=== PATIENT | male | born 1970 | race Caucasian/White ===

== ENCOUNTER 2017-12-17 02:35 | Inpatient (IN) | payer MEDICARE, OTHER ==
[~2017-12-17] VITALS: Ht 175.3 cm; Wt 112.0 kg
[2017-12-17] MEDS ORDERED: PROPOFOL 1000 MG/ISO-OSM 100 ML IV PRN (02:45)
[2017-12-17] MEDS ORDERED: ETOMIDATE 2 MG/ML 10 ML VIAL IVP ONE (02:45)
[2017-12-17 02:48] LABS: GLUCOSE,POINT OF CARE 168 MG/DL (70-110)
[2017-12-17] MEDS ORDERED: IPRATROPIUM BROMIDE 0.5 MG/2.5 ML NEB SOLUTION NEB ONE ×2 (03:00→04:45)
[2017-12-17] MEDS ORDERED: CefTRIAXone SODIUM 1 GM in DEXTROSE 5%-WATER 10 ML IV ONE (03:00)
[2017-12-17] MEDS ORDERED: MethylPREDNISolone SOD SUCC 125 MG/2 ML VIAL IVP ONE (03:00)
[2017-12-17] MEDS ORDERED: ALBUTEROL SULFATE 5 MG/ML 20 ML NEB SOLN [BULK] NEB ONE ×2 (03:00→04:45)
[2017-12-17 03:05] LABS: BASOPHILS % (AUTO) 0.9 % (0.0-2.0); EOSINOPHILS % (AUTO) 3.5 % (1.0-6.0); HEMATOCRIT 41.1 % (41-53); HEMOGLOBIN 13.6 g/dL (13.5-17.5); LYMPHOCYTES # (AUTO) 5.3 K/uL (1.0-4.8); LYMPHOCYTES % (AUTO) 47.4 % (22.0-44.0); MEAN CORPUSCULAR HEMOGLOBIN 29.1 pg (26.0-34.0); MEAN CORPUSCULAR HGB CONC 33.2 G/dL (31.0-37.0); MEAN CORPUSCULAR VOLUME 88 fL (80-100); MONOCYTES # (AUTO) 0.7 K/uL (0.1-1.0); MONOCYTES % (AUTO) 6.6 % (2.0-9.0); NEUTROPHILS # (AUTO) 4.7 K/uL (1.8-7.7); NEUTROPHILS % (AUTO) 41.6 % (40.0-70.0); PLATELET COUNT (AUTO) 215 K/uL (150-450); RED BLOOD CELL COUNT(AUTO) 4.69 MIL/uL (4.50-5.90); RED CELL DISTRIBUTION WIDTH 13.6 % (11.5-14.5)
[2017-12-17 03:08] LABS: ANION GAP 8 mmol/L (8-16); CALCIUM, TOTAL 7.7 mg/dL (8.8-10.5); CARBON DIOXIDE 27 mmol/L (22-29); CHLORIDE 105 mmol/L (98-107); CREATININE 1.25 mg/dL (0.60-1.30); GLOMERULAR FILTR. RATE CALC > 60 mL/min (>60); GLUCOSE,RANDOM 184 mg/dL (70-110); POTASSIUM 3.5 mmol/L (3.5-5.1); SODIUM SERUM 140 mmol/L (136-145); UREA NITROGEN, BLOOD 16 mg/dL (7-18)
[2017-12-17] MEDS ORDERED: ZOLP5 PO (03:08)
[2017-12-17] MEDS ORDERED: ESCI20TA36 PO (03:08)
[2017-12-17] MEDS ORDERED: OLAN15TA18 PO (03:08)
[2017-12-17] MEDS ORDERED: GABA-531 PO (03:08)
[2017-12-17] MEDS ORDERED: OMEP20CA10 PO (03:08)
[2017-12-17] MEDS ORDERED: PALI156D IM (03:08)
[2017-12-17] MEDS ORDERED: DOCU-275 PO (03:08)
[2017-12-17] MEDS ORDERED: IBUP-2076 PO (03:08)
[2017-12-17 03:09] LABS: ABG BASE EXCESS -0.4 mmol/L (-2.0-3.0); SOURCE, BLOOD GAS ARTERIAL; TEMPERATURE, FAHRENHEIT, BG 98.6 FAHREN (96.0-98.6)
[2017-12-17 03:17] LABS: ABG A-A DIFF O2 583.8 mmHg (10-20.0); ABG CARBOXYHEMOGLOBIN 1.8 % (0.0-1.5); ABG HCO3 23.2 mmol/L (22.0-26.0); ABG METHEMOGLOBIN 0.4 % (0.0-1.5); ABG OXYGEN CONTENT 17.9 mL/dL (15.0-23.0); ABG OXYGEN SATURATION 92.8 % (95.0-98.0); ABG OXYHEMOGLOBIN 90.8 % (94.0-100.0); ABG PCO2 58 mmHg (35-45); ABG PH 7.279 (7.35-7.450); PO2, ARTERIAL BG 71.6 mmHg (88.0-96.0); SITE, BLOOD GAS RT RADIAL
[2017-12-17 03:18] LABS: O2 DEVICE,BLOOD GAS AEROSOL MASK (ROOM AIR)
[2017-12-17 03:24] LABS: B-TYPE NATRIURETIC PEPTIDE 6 pg/mL (0-100)
[2017-12-17 03:30] LABS: AMMONIA 71 umol/L (11-32); TROPONIN I < 0.02 ng/mL (0.00-0.05)
[2017-12-17 03:34] LABS: ASPARTATE AMINOTRANSFERASE 20 U/L (15-37); BILIRUBIN,TOTAL 0.2 mg/dL (0.1-1.0); CREATINE KINASE, TOTAL 84 U/L (39-308); THYROID STIMULATING HORMONE 4.14 uIU/mL (0.36-3.74); TOTAL PROTEIN, SERUM 6.9 g/dL (6.4-8.2)
[2017-12-17 03:58] LABS: ALANINE AMINOTRANSFERASE 33 U/L (12-78); ALBUMIN 3.1 g/dL (3.4-5.0); ALKALINE PHOSPHATASE 93 U/L (46-116); CREATINE KINASE MB 0.5 ng/mL (0-5); FREE T4 (FREE THYROXINE) 0.73 ng/dL (0.76-1.46); LIPASE 76 U/L (73-393)
[2017-12-17 05:21] LABS: LACTIC ACID 2.4 mmol/L (0.4-2.0)
[2017-12-17 05:28] LABS: ABG A-A DIFF O2 41.8 mmHg (10-20.0); ABG BASE EXCESS -0.2 mmol/L (-2.0-3.0); ABG CARBOXYHEMOGLOBIN 0.9 % (0.0-1.5); ABG HCO3 23.1 mmol/L (22.0-26.0); ABG METHEMOGLOBIN 0.2 % (0.0-1.5); ABG OXYHEMOGLOBIN 75.8 % (94.0-100.0); ABG PCO2 54 mmHg (35-45); ABG PH 7.304 (7.35-7.450); ABG TOTAL HEMOGLOBIN 14.1 G/dL (12.0-18.0); PO2, ARTERIAL BG 43.4 mmHg (88.0-96.0); SOURCE, BLOOD GAS ARTERIAL; TEMPERATURE, FAHRENHEIT, BG 98.6 FAHREN (96.0-98.6)
[2017-12-17 05:30] LABS: ABG OXYGEN SATURATION 76.6 % (95.0-98.0); SITE, BLOOD GAS RT RADIAL
[2017-12-17 05:36] LABS: CREATINE KINASE MB 0.7 ng/mL (0-5); CREATINE KINASE, TOTAL 89 U/L (39-308)
[2017-12-17] MEDS ORDERED: ONDANSETRON HCL 4 MG/2 ML VIAL IVP PRN (08:00)
[2017-12-17 08:06] LABS: APPEARANCE,URINE CLEAR (CLEAR); BILIRUBIN,URINE NEGATIVE (NEGATIVE); GLUCOSE, URINE (UA) NEGATIVE (NEGATIVE); KETONES,URINE NEGATIVE (NEGATIVE); LEUKOCYTE ESTERASE ,URINE NEGATIVE (NEGATIVE); NITRATE,URINE NEGATIVE (NEGATIVE); OCCULT BLOOD,URINE NEGATIVE (NEGATIVE); PH,URINE 5.5 (5.0-8.0); PROTEIN,URINE NEGATIVE (NEGATIVE); UROBILINOGEN,URINE 0.2 mg/dL (<=1.0)
[2017-12-17 08:09] LABS: AMPHET/METH SCREEN,URINE NEGATIVE (NEGATIVE); BARBITURATE SCREEN, URINE NEGATIVE (NEGATIVE); BENZODIAZEPINES SCREEN,URINE NEGATIVE (NEGATIVE); CANNABINOID SCREEN,URINE POSITIVE (NEGATIVE); COCAINE SCREEN,URINE NEGATIVE (NEGATIVE); METHADONE SCREEN, URINE NEGATIVE (NEGATIVE); OPIATE SCREEN,URINE POSITIVE (NEGATIVE)
[2017-12-17 08:10] LABS: PHENCYCLIDINE SCREEN,URINE NEGATIVE (NEGATIVE)
[2017-12-17] MEDS ORDERED: DEXTROSE 50%-WATER 25 GM/50 ML SYRINGE IVP PRN (08:15)
[2017-12-17] MEDS ORDERED: INSULIN LISPRO 100 UNITS/ML SQ PRN (08:15)
[2017-12-17] MEDS ORDERED: SODIUM CHLORIDE 0.9% 1,000 ML IV ONE (08:30)
[2017-12-17] MEDS ORDERED: RINGERS SOLUTION,LACTATED 1,000 ML IV ONE (08:30)
[2017-12-17] MEDS: ALBUTEROL SULFATE 2.5 MG/0.5 ML NEB SOLUTION NEB SCH ×3 (08:35→19:49)
[2017-12-17] MEDS: IPRATROPIUM BROMIDE 0.5 MG/2.5 ML NEB SOLUTION NEB SCH ×3 (08:35→19:49)
[2017-12-17] MEDS: DOCUSATE SODIUM 100 MG CAPSULE PO SCH ×2 (08:37→21:00)
[2017-12-17] MEDS: LEVOTHYROXINE SODIUM 25 MCG TABLET PO SCH (08:37)
[2017-12-17] MEDS: ENOXAPARIN SODIUM 40 MG/0.4 ML PF SYRINGE SQ SCH (08:38)
[2017-12-17 08:46] LABS: EOSINOPHILS % (AUTO) 0 % (1.0-6.0); LYMPHOCYTES # (AUTO) 0.7 K/uL (1.0-4.8); MEAN CORPUSCULAR HGB CONC 33.4 G/dL (31.0-37.0); MEAN CORPUSCULAR VOLUME 87 fL (80-100); MONOCYTES # (AUTO) 0.1 K/uL (0.1-1.0); MONOCYTES % (AUTO) 1.1 % (2.0-9.0); NEUTROPHILS # (AUTO) 10.4 K/uL (1.8-7.7); PLATELET COUNT (AUTO) 184 K/uL (150-450); RED BLOOD CELL COUNT(AUTO) 4.49 MIL/uL (4.50-5.90); RED CELL DISTRIBUTION WIDTH 13.5 % (11.5-14.5)
[2017-12-17 08:47] LABS: NEUTROPHILS % (AUTO) 92.9 % (40.0-70.0)
[2017-12-17 08:55] LABS: INR 0.9 (0.9-1.1); PROTHROMBIN TIME 9.8 SEC (9.4-11.6)
[2017-12-17 09:01] LABS: ALBUMIN 3.3 g/dL (3.4-5.0); BILIRUBIN,TOTAL 0.2 mg/dL (0.1-1.0); CALCIUM, TOTAL 7.9 mg/dL (8.8-10.5); CREATININE 1.64 mg/dL (0.60-1.30); TOTAL PROTEIN, SERUM 7.2 g/dL (6.4-8.2)
[2017-12-17 09:06] LABS: POTASSIUM 2.9 mmol/L (3.5-5.1)
[2017-12-17] MEDS ORDERED: POTASSIUM CHLORIDE 20 MEQ ER TABLET PO PRN (09:15)
[2017-12-17] MEDS: POTASSIUM CHL 10 MEQ/WATER 50 ML IV PRN ×3 (09:28→11:31)
[2017-12-17 13:08] LABS: GLUCOSE,POINT OF CARE 192 MG/DL (70-110)
[2017-12-17 13:36] VITALS: BP 101/51
[2017-12-17 19:55] VITALS: BP 117/63
[2017-12-17 23:33] VITALS: BP 115/59
[2017-12-18] MEDS: IPRATROPIUM BROMIDE 0.5 MG/2.5 ML NEB SOLUTION NEB SCH ×3 (02:00→13:44)
[2017-12-18] MEDS: ALBUTEROL SULFATE 2.5 MG/0.5 ML NEB SOLUTION NEB SCH ×3 (02:00→13:44)
[2017-12-18 04:22] VITALS: BP 101/50
[2017-12-18] MEDS: LEVOTHYROXINE SODIUM 25 MCG TABLET PO SCH (05:39)
[2017-12-18] MEDS ORDERED: LANSOPRAZOLE 30 MG CAPSULE PO SCH (06:30)
[2017-12-18 07:57] VITALS: BP 130/63
[2017-12-18] MEDS: DOCUSATE SODIUM 100 MG CAPSULE PO SCH (09:57)
[2017-12-18] MEDS: ENOXAPARIN SODIUM 40 MG/0.4 ML PF SYRINGE SQ SCH (09:57)
[2017-12-18 11:07] VITALS: BP 122/72
[2017-12-18 16:35] VITALS: BP 124/76
[2017-12-18 22:29] LABS: GLUCOMETER DEV NAME(LOC) 5N 2S; GLUCOSE,POINT OF CARE 127 MG/DL (70-110)
[2017-12-19 18:24] LABS: GLUCOMETER DEV NAME(LOC) 5N 1P; GLUCOSE,POINT OF CARE 149 MG/DL (70-110)
== END 2017-12-18 18:55 | disposition home or self-care (01) | DRG 917 ==
LOC: EMS 02:37 → EDBD 02:37 → 5N 12:57
PROVIDERS: ADMIT Internal Medicine; ATTEND Internal Medicine
DX: T40.601A Poisoning by unspecified narcotics, accidental (unintentional), initial encounter (principal); I46.9 Cardiac arrest, cause unspecified; G92 Toxic encephalopathy; J96.00 Acute respiratory failure, unspecified whether with hypoxia or hypercapnia; E87.2 Acidosis; J44.1 Chronic obstructive pulmonary disease with (acute) exacerbation; G31.9 Degenerative disease of nervous system, unspecified; E03.9 Hypothyroidism, unspecified; G89.4 Chronic pain syndrome; J44.9 Chronic obstructive pulmonary disease, unspecified; Y92.89 Other specified places as the place of occurrence of the external cause; E11.9 Type 2 diabetes mellitus without complications; S00.83XA Contusion of other part of head, initial encounter; Y93.89 Activity, other specified; Y99.8 Other external cause status; W19.XXXA Unspecified fall, initial encounter; Z79.899 Other long term (current) drug therapy
CPT/HCPCS: 51702; 70450; 82805; 83605; 84132; 84439; 84443; 87040; 93005; 94640; 94644; 94645; 96374; 96375; 99291; G0480; J0696; J1650; J2930; J3480; J7060; J7120

== ENCOUNTER 2018-11-07 19:08 | Emergency (ER) | payer MEDICARE, OTHER ==
[~2018-11-07] VITALS: Ht 172.7 cm; Wt 118.2 kg
[~2018-11-07 19:08] MED LIST: DOCU-275 PO; ESCI20TA PO; ESCI20TA36 PO; GABA-531 PO; IBUP-2076 PO; OLAN10TA3 PO; OLAN15TA18 PO; OMEP-50 PO; PALI156D IM; ZOLP5 PO
[2018-11-07] MEDS ORDERED: KETOROLAC TROMETHAMINE 30 MG/ML VIAL IM ONE (21:00)
[2018-11-07 21:20] VITALS: BP 130/84
== END 2018-11-07 21:40 | disposition home or self-care (01) ==
LOC: EMS 19:11
DX: M25.561 Pain in right knee (principal); M25.562 Pain in left knee; G89.29 Other chronic pain; Z91.013 Allergy to seafood
CPT/HCPCS: 96372; 99283; J1885

== ENCOUNTER 2019-04-14 19:31 | Inpatient (IN) | payer MEDICARE, MEDICAID ==
[~2019-04-14] VITALS: Ht 172.7 cm; Wt 108.0 kg
[~2019-04-14 19:31] MED LIST changes: -ESCI20TA PO; -OMEP-50 PO; +OMEP20CA12 PO
[2019-04-14] MEDS ORDERED: LORazepam 2 MG TABLET PO PRN (21:30)
[2019-04-14 21:31] LABS: AMPHET/METH SCREEN,URINE NEGATIVE (NEGATIVE); BARBITURATE SCREEN, URINE NEGATIVE (NEGATIVE); BENZODIAZEPINES SCREEN,URINE NEGATIVE (NEGATIVE); CANNABINOID SCREEN,URINE NEGATIVE (NEGATIVE); COCAINE SCREEN,URINE NEGATIVE (NEGATIVE); METHADONE SCREEN, URINE NEGATIVE (NEGATIVE); OPIATE SCREEN,URINE NEGATIVE (NEGATIVE)
[2019-04-14 21:32] LABS: PHENCYCLIDINE SCREEN,URINE NEGATIVE (NEGATIVE)
[2019-04-14 21:39] LABS: BASOPHILS % (AUTO) 0.7 % (0.0-2.0); EOSINOPHILS % (AUTO) 2.5 % (1.0-6.0); HEMATOCRIT 39.9 % (41-53); HEMOGLOBIN 13.6 g/dL (13.5-17.5); LYMPHOCYTES # (AUTO) 1.8 K/uL (1.0-4.8); LYMPHOCYTES % (AUTO) 21.2 % (22.0-44.0); MEAN CORPUSCULAR HEMOGLOBIN 29.3 pg (26.0-34.0); MEAN CORPUSCULAR VOLUME 86 fL (80-100); MONOCYTES # (AUTO) 0.5 K/uL (0.1-1.0); MONOCYTES % (AUTO) 5.5 % (2.0-9.0); NEUTROPHILS # (AUTO) 5.8 K/uL (1.8-7.7); NEUTROPHILS % (AUTO) 70.1 % (40.0-70.0); PLATELET COUNT (AUTO) 235 K/uL (150-450); RED BLOOD CELL COUNT(AUTO) 4.62 MIL/uL (4.50-5.90); RED CELL DISTRIBUTION WIDTH 13.2 % (11.5-14.5)
[2019-04-14 21:43] LABS: APPEARANCE,URINE CLEAR (CLEAR); BILIRUBIN,URINE NEGATIVE (NEGATIVE); GLUCOSE, URINE (UA) NEGATIVE (NEGATIVE); KETONES,URINE NEGATIVE (NEGATIVE); LEUKOCYTE ESTERASE ,URINE NEGATIVE (NEGATIVE); NITRATE,URINE NEGATIVE (NEGATIVE); OCCULT BLOOD,URINE NEGATIVE (NEGATIVE); PROTEIN,URINE NEGATIVE (NEGATIVE); UROBILINOGEN,URINE 0.2 mg/dL (<=1.0)
[2019-04-14 21:52] LABS: ANION GAP 9 mmol/L (8-16); CALCIUM, TOTAL 8.8 mg/dL (8.8-10.5); CARBON DIOXIDE 26 mmol/L (22-29); CHLORIDE 99 mmol/L (98-107); CREATININE 1.17 mg/dL (0.60-1.30); GLOMERULAR FILTR. RATE CALC > 60 mL/min (>60); GLUCOSE,RANDOM 122 mg/dL (70-110); POTASSIUM 3.1 mmol/L (3.5-5.1); SODIUM SERUM 134 mmol/L (136-145); UREA NITROGEN, BLOOD 9 mg/dL (7-18)
[2019-04-14 22:00] LABS: ALANINE AMINOTRANSFERASE 47 U/L (12-78); ALBUMIN 3.8 g/dL (3.4-5.0); ALKALINE PHOSPHATASE 89 U/L (46-116); ASPARTATE AMINOTRANSFERASE 27 U/L (15-37); BILIRUBIN,TOTAL 0.5 mg/dL (0.1-1.0); TOTAL PROTEIN, SERUM 7.5 g/dL (6.4-8.2)
[2019-04-14] MEDS: ZOLPIDEM TARTRATE 10 MG TABLET PO PRN (22:00)
[2019-04-14] MEDS: HALOPERIDOL 5 MG TABLET PO PRN (22:00)
[2019-04-14] MEDS ORDERED: POTASSIUM CHLORIDE 20 MEQ ER TABLET PO ONE (22:30)
[2019-04-15 03:22] LABS: CHOL/HDL RATIO 1.7 (4.2-7.3); CHOLESTEROL 100 mg/dL (131-200); HDL CHOLESTEROL 59 mg/dL (40-60); LDL CHOL (CALC.) 31 mg/dL (0-130); TRIGLYCERIDES 51 mg/dL (15-150)
[2019-04-15] MEDS: HALOPERIDOL 5 MG TABLET PO PRN (05:00)
[2019-04-15 11:30] VITALS: BP 115/61
[2019-04-15] MEDS ORDERED: INFLUENZA VIRUS VACCINE QVS 2019-20 (3YR+)/PF 60 MCG/0.5 ML SYRINGE IM ONE (12:30)
[2019-04-15] MEDS ORDERED: IBUPROFEN 600 MG TABLET PO PRN (13:00)
[2019-04-15] MEDS: GABAPENTIN 300 MG CAPSULE PO SCH ×2 (13:29→16:49)
[2019-04-15] MEDS: ACETAMINOPHEN 325 MG TABLET PO PRN (13:30)
[2019-04-15 13:32] VITALS: BP 130/83
[2019-04-15] MEDS ORDERED: IBUPROFEN 400 MG TABLET PO PRN (15:45)
[2019-04-15 16:11] VITALS: BP 115/83
[2019-04-15] MEDS: OLANZapine 7.5 MG TABLET PO SCH (20:35)
[2019-04-15] MEDS: ZOLPIDEM TARTRATE 10 MG TABLET PO PRN (21:43)
[2019-04-16 00:50] VITALS: BP 113/67
[2019-04-16] MEDS: ALBUTEROL SULFATE HFA 90 MCG/PUFF 8 GM INHALER IH PRN (01:09)
[2019-04-16] MEDS: GABAPENTIN 300 MG CAPSULE PO SCH ×3 (08:15→16:31)
[2019-04-16] MEDS: ESCITALOPRAM OXALATE 20 MG TABLET PO SCH (08:15)
[2019-04-16] MEDS: DOCUSATE SODIUM 100 MG CAPSULE PO SCH (08:15)
[2019-04-16] MEDS: OMEPRAZOLE 20 MG CAPSULE PO SCH (08:15)
[2019-04-16 08:35] VITALS: BP 111/84
[2019-04-16 16:53] VITALS: BP 122/80
[2019-04-16] MEDS: OLANZapine 7.5 MG TABLET PO SCH (20:48)
[2019-04-17 05:40] VITALS: BP 129/93
[2019-04-17] MEDS: ESCITALOPRAM OXALATE 20 MG TABLET PO SCH (08:30)
[2019-04-17] MEDS: GABAPENTIN 300 MG CAPSULE PO SCH ×3 (08:30→17:12)
[2019-04-17] MEDS: OMEPRAZOLE 20 MG CAPSULE PO SCH (08:30)
[2019-04-17] MEDS: DOCUSATE SODIUM 100 MG CAPSULE PO SCH (08:30)
[2019-04-17 13:07] VITALS: BP 118/88
[2019-04-17] MEDS: ACETAMINOPHEN 325 MG TABLET PO PRN (13:07)
[2019-04-17 16:27] VITALS: BP 114/74
[2019-04-17] MEDS: OLANZapine 7.5 MG TABLET PO SCH (20:02)
[2019-04-17] MEDS: ZOLPIDEM TARTRATE 10 MG TABLET PO PRN (21:28)
[2019-04-18 00:13] VITALS: BP 127/78
[2019-04-18] MEDS: DOCUSATE SODIUM 100 MG CAPSULE PO SCH (08:17)
[2019-04-18] MEDS: GABAPENTIN 300 MG CAPSULE PO SCH ×3 (08:17→16:36)
[2019-04-18] MEDS: OMEPRAZOLE 20 MG CAPSULE PO SCH (08:17)
[2019-04-18] MEDS: ESCITALOPRAM OXALATE 20 MG TABLET PO SCH (08:17)
[2019-04-18 08:19] VITALS: BP 120/80
[2019-04-18] MEDS: ACETAMINOPHEN 325 MG TABLET PO PRN ×2 (09:54→16:36)
[2019-04-18 09:55] VITALS: BP 122/82
[2019-04-18 16:32] VITALS: BP 121/76
[2019-04-18 19:13] VITALS: BP 128/82
[2019-04-18] MEDS: OLANZapine 7.5 MG TABLET PO SCH (20:41)
[2019-04-18] MEDS: ZOLPIDEM TARTRATE 10 MG TABLET PO PRN (21:34)
[2019-04-18] MEDS: ALBUTEROL SULFATE HFA 90 MCG/PUFF 8 GM INHALER IH PRN (21:43)
[2019-04-19 06:15] VITALS: BP 113/82
[2019-04-19] MEDS: GABAPENTIN 300 MG CAPSULE PO SCH ×2 (08:27→12:02)
[2019-04-19] MEDS: DOCUSATE SODIUM 100 MG CAPSULE PO SCH (08:27)
[2019-04-19] MEDS: OMEPRAZOLE 20 MG CAPSULE PO SCH (08:28)
[2019-04-19] MEDS: ACETAMINOPHEN 325 MG TABLET PO PRN (08:29)
[2019-04-19 08:40] VITALS: BP 130/89
[2019-04-19] MEDS: ESCITALOPRAM OXALATE 20 MG TABLET PO SCH (09:01)
== END 2019-04-19 13:25 | disposition home or self-care (01) | DRG 885 ==
LOC: EMS 19:33 → B2X 04-15 09:04
PROVIDERS: ADMIT Psychiatry & Neurology Psychiatry; ATTEND Psychiatry & Neurology Psychiatry
DX: F25.0 Schizoaffective disorder, bipolar type (principal); E87.1 Hypo-osmolality and hyponatremia; R45.851 Suicidal ideations; D64.9 Anemia, unspecified; E87.6 Hypokalemia; F12.90 Cannabis use, unspecified, uncomplicated; G62.9 Polyneuropathy, unspecified; F60.3 Borderline personality disorder; G89.29 Other chronic pain; J43.9 Emphysema, unspecified; J45.909 Unspecified asthma, uncomplicated; K21.9 Gastro-esophageal reflux disease without esophagitis; K59.00 Constipation, unspecified; M17.10 Unilateral primary osteoarthritis, unspecified knee; Z91.19 Patient's noncompliance with other medical treatment and regimen; Z91.5 Personal history of self-harm; Z23 Encounter for immunization; Z79.899 Other long term (current) drug therapy
CPT/HCPCS: 90686; G0480; J3535

== ENCOUNTER 2020-09-23 22:52 | Emergency (ER) | payer MEDICARE, OTHER ==
[~2020-09-23] VITALS: Ht 172.7 cm; Wt 113.6 kg
[~2020-09-23 22:52] MED LIST changes: -DOCU-275 PO; -ESCI20TA36 PO; +ESCI20TA37 PO; +GABA-1181 PO; -GABA-531 PO; -IBUP-2076 PO; -OLAN10TA3 PO; +OLAN10TA74 PO; -OLAN15TA18 PO; -OMEP20CA12 PO; -PALI156D IM; -ZOLP5 PO
[2020-09-23 23:51] LABS: APPEARANCE,URINE CLEAR (CLEAR); BILIRUBIN,URINE NEGATIVE (NEGATIVE); GLUCOSE, URINE (UA) NEGATIVE (NEGATIVE); KETONES,URINE NEGATIVE (NEGATIVE); LEUKOCYTE ESTERASE ,URINE NEGATIVE (NEGATIVE); NITRATE,URINE NEGATIVE (NEGATIVE); OCCULT BLOOD,URINE NEGATIVE (NEGATIVE); PH,URINE 6.5 (5.0-8.0); PROTEIN,URINE NEGATIVE (NEGATIVE); UROBILINOGEN,URINE 0.2 mg/dL (<=1.0)
[2020-09-24 00:07] LABS: AMPHET/METH SCREEN,URINE NEGATIVE (NEGATIVE); BARBITURATE SCREEN, URINE NEGATIVE (NEGATIVE); BENZODIAZEPINES SCREEN,URINE NEGATIVE (NEGATIVE); CANNABINOID SCREEN,URINE NEGATIVE (NEGATIVE); COCAINE SCREEN,URINE NEGATIVE (NEGATIVE); METHADONE SCREEN, URINE NEGATIVE (NEGATIVE); OPIATE SCREEN,URINE NEGATIVE (NEGATIVE)
[2020-09-24 00:23] LABS: PHENCYCLIDINE SCREEN,URINE NEGATIVE (NEGATIVE)
[2020-09-24 00:32] LABS: BASOPHILS % (AUTO) 0.5 % (0.0-2.0); HEMATOCRIT 36.7 % (41-53); HEMOGLOBIN 12.3 g/dL (13.5-17.5); LYMPHOCYTES # (AUTO) 2.4 K/uL (1.0-4.8); LYMPHOCYTES % (AUTO) 20.6 % (22.0-44.0); MEAN CORPUSCULAR HEMOGLOBIN 28.3 pg (26.0-34.0); MEAN CORPUSCULAR HGB CONC 33.4 G/dL (31.0-37.0); MEAN CORPUSCULAR VOLUME 85 fL (80-100); MONOCYTES # (AUTO) 0.6 K/uL (0.1-1.0); MONOCYTES % (AUTO) 5.6 % (2.0-9.0); NEUTROPHILS # (AUTO) 8.3 K/uL (1.8-7.7); NEUTROPHILS % (AUTO) 72.3 % (40.0-70.0); PLATELET COUNT (AUTO) 209 K/uL (150-450); RED BLOOD CELL COUNT(AUTO) 4.34 MIL/uL (4.50-5.90)
[2020-09-24 00:55] LABS: ALANINE AMINOTRANSFERASE 35 U/L (12-78); ALBUMIN 3.7 g/dL (3.4-5.0); ALKALINE PHOSPHATASE 69 U/L (46-116); ANION GAP 10 mmol/L (8-16); ASPARTATE AMINOTRANSFERASE 28 U/L (15-37); BILIRUBIN,TOTAL 0.4 mg/dL (0.1-1.0); CARBON DIOXIDE 26 mmol/L (22-29); CHLORIDE 92 mmol/L (98-107); CREATININE 1.26 mg/dL (0.60-1.30); GLOMERULAR FILTR. RATE CALC > 60 mL/min (>60); GLUCOSE,RANDOM 94 mg/dL (70-110); SODIUM SERUM 128 mmol/L (136-145); TOTAL PROTEIN, SERUM 6.7 g/dL (6.4-8.2); UREA NITROGEN, BLOOD 6 mg/dL (7-18)
[2020-09-24 01:01] LABS: ACETAMINOPHEN < 2 mcg/mL (10-30); SALICYLATE 1.6 mg/dL (2.8-20.0)
[2020-09-24] MEDS ORDERED: POTASSIUM CHLORIDE 20 MEQ ER TABLET PO ONE ×2 (01:45→05:00)
[2020-09-24] MEDS ORDERED: SODIUM CHLORIDE 0.9% 1,000 ML IV ONE (01:45)
[2020-09-24 04:41] LABS: ANION GAP 9 mmol/L (8-16); CALCIUM, TOTAL 8.1 mg/dL (8.8-10.5); CARBON DIOXIDE 27 mmol/L (22-29); CHLORIDE 98 mmol/L (98-107); CREATININE 1.22 mg/dL (0.60-1.30); GLOMERULAR FILTR. RATE CALC > 60 mL/min (>60); GLUCOSE,RANDOM 95 mg/dL (70-110); SODIUM SERUM 134 mmol/L (136-145); UREA NITROGEN, BLOOD 4 mg/dL (7-18)
[2020-09-24] MEDS ORDERED: KETOROLAC TROMETHAMINE 30 MG/ML VIAL IVP ONE (04:45)
[2020-09-24 04:47] LABS: ALANINE AMINOTRANSFERASE 34 U/L (12-78); ALBUMIN 3.6 g/dL (3.4-5.0); ALKALINE PHOSPHATASE 69 U/L (46-116); ASPARTATE AMINOTRANSFERASE 26 U/L (15-37); BILIRUBIN,TOTAL 0.5 mg/dL (0.1-1.0); TOTAL PROTEIN, SERUM 6.5 g/dL (6.4-8.2)
[2020-09-24 04:49] LABS: ACETAMINOPHEN < 2 mcg/mL (10-30)
[2020-09-24 05:19] VITALS: BP 122/68
== END 2020-09-24 05:33 | disposition home or self-care (01) ==
LOC: EMS 22:52
DX: T39.1X1A Poisoning by 4-Aminophenol derivatives, accidental (unintentional), initial encounter (principal); G89.29 Other chronic pain; M25.562 Pain in left knee; M25.561 Pain in right knee; F20.9 Schizophrenia, unspecified; Z91.013 Allergy to seafood; Y92.89 Other specified places as the place of occurrence of the external cause
CPT/HCPCS: 36415; 80053; 80307; 81003; 85025; 93005; 96361; 96374; 99285; G0480; J1885; J7030; G0481

== ENCOUNTER 2020-12-30 20:58 | Inpatient (IN) | payer MEDICARE, MEDICAID ==
[~2020-12-30] VITALS: Ht 172.7 cm; Wt 110.7 kg
[2020-12-30 22:03] LABS: BASOPHILS % (AUTO) 0.4 % (0.0-2.0); EOSINOPHILS % (AUTO) 2.1 % (1.0-6.0); HEMATOCRIT 40.3 % (41-53); HEMOGLOBIN 13.3 g/dL (13.5-17.5); LYMPHOCYTES # (AUTO) 2.3 K/uL (1.0-4.8); MEAN CORPUSCULAR HEMOGLOBIN 28.8 pg (26.0-34.0); MEAN CORPUSCULAR HGB CONC 32.9 G/dL (31.0-37.0); MEAN CORPUSCULAR VOLUME 88 fL (80-100); MONOCYTES # (AUTO) 0.5 K/uL (0.1-1.0); MONOCYTES % (AUTO) 5.7 % (2.0-9.0); NEUTROPHILS # (AUTO) 5.7 K/uL (1.8-7.7); NEUTROPHILS % (AUTO) 65.8 % (40.0-70.0); PLATELET COUNT (AUTO) 196 K/uL (150-450); RED BLOOD CELL COUNT(AUTO) 4.61 MIL/uL (4.50-5.90); RED CELL DISTRIBUTION WIDTH 14.4 % (11.5-14.5)
[2020-12-30 22:15] LABS: COVID AG,FIA SOURCE NASOPHARYNGEAL
[2020-12-30 22:16] LABS: ALANINE AMINOTRANSFERASE 23 U/L (12-78); ALBUMIN 3.4 g/dL (3.4-5.0); ALKALINE PHOSPHATASE 93 U/L (46-116); ANION GAP 11 mmol/L (8-16); ASPARTATE AMINOTRANSFERASE 14 U/L (15-37); BILIRUBIN,TOTAL 0.5 mg/dL (0.1-1.0); CALCIUM, TOTAL 8.6 mg/dL (8.8-10.5); CARBON DIOXIDE 27 mmol/L (22-29); CHLORIDE 98 mmol/L (98-107); CREATININE 0.96 mg/dL (0.60-1.30); GLOMERULAR FILTR. RATE CALC > 60 mL/min (>60); GLUCOSE,RANDOM 106 mg/dL (70-110); SODIUM SERUM 136 mmol/L (136-145); TOTAL PROTEIN, SERUM 7.2 g/dL (6.4-8.2); UREA NITROGEN, BLOOD 13 mg/dL (7-18)
[2020-12-30 22:39] LABS: AMPHET/METH SCREEN,URINE NEGATIVE (NEGATIVE); BARBITURATE SCREEN, URINE NEGATIVE (NEGATIVE); BENZODIAZEPINES SCREEN,URINE NEGATIVE (NEGATIVE); CANNABINOID SCREEN,URINE POSITIVE (NEGATIVE); COCAINE SCREEN,URINE NEGATIVE (NEGATIVE); METHADONE SCREEN, URINE NEGATIVE (NEGATIVE); OPIATE SCREEN,URINE NEGATIVE (NEGATIVE)
[2020-12-30 22:41] LABS: PHENCYCLIDINE SCREEN,URINE NEGATIVE (NEGATIVE)
[2020-12-30] MEDS ORDERED: LORazepam 2 MG TABLET PO PRN (23:00)
[2020-12-30] MEDS ORDERED: HALOPERIDOL 5 MG TABLET PO PRN (23:00)
[2020-12-31 08:48] VITALS: BP 120/60
[2020-12-31] MEDS ORDERED: POTASSIUM CHLORIDE 20 MEQ ER TABLET PO ONE (09:00)
[2020-12-31] MEDS ORDERED: ALBUTEROL SULFATE HFA 90 MCG/PUFF 8 GM INHALER IH PRN (10:00)
[2020-12-31] MEDS ORDERED: ONDANSETRON HCL 4 MG TABLET PO PRN (10:00)
[2020-12-31] MEDS ORDERED: MAGNESIUM HYDROXIDE SUSPENSION 30 ML UDCUP PO PRN (10:00)
[2020-12-31] MEDS ORDERED: CloNIDine HCL 0.1 MG TABLET PO PRN (10:00)
[2020-12-31] MEDS ORDERED: PETROLATUM,WHITE 28 GM JELLY TP PRN (10:00)
[2020-12-31] MEDS ORDERED: OMEPRAZOLE 20 MG CAPSULE PO PRN (10:00)
[2020-12-31] MEDS ORDERED: MAG HYDROX/AL HYDROX/SIMETH ES 30 ML SUSPENSION UDCUP PO PRN (10:00)
[2020-12-31] MEDS ORDERED: LOPERAMIDE HCL 2 MG CAPSULE PO PRN (10:00)
[2020-12-31] MEDS ORDERED: BACITRACIN 28 GM OINTMENT TP PRN (10:00)
[2020-12-31] MEDS ORDERED: BENZOCAINE/MENTHOL LOZENGE PO PRN (10:00)
[2020-12-31] MEDS ORDERED: DOCUSATE SODIUM 100 MG CAPSULE PO PRN (10:00)
[2020-12-31] MEDS ORDERED: IBUPROFEN 600 MG TABLET PO PRN (10:00)
[2020-12-31 12:30] VITALS: BP 120/72
[2020-12-31] MEDS: ACETAMINOPHEN 325 MG TABLET PO PRN ×2 (12:52→18:42)
[2020-12-31] MEDS: GABAPENTIN 300 MG CAPSULE PO SCH ×2 (13:30→16:19)
[2020-12-31 13:50] VITALS: BP 112/64
[2020-12-31 18:42] VITALS: BP 133/79
[2020-12-31 19:42] VITALS: BP 120/80
[2020-12-31 19:56] VITALS: BP 149/89
[2020-12-31] MEDS: OLANZapine 10 MG TABLET PO SCH (20:21)
[2020-12-31] MEDS: ZOLPIDEM TARTRATE 10 MG TABLET PO PRN (20:22)
[2021-01-01 05:50] VITALS: BP 149/82
[2021-01-01] MEDS: ACETAMINOPHEN 325 MG TABLET PO PRN ×5 (06:02→23:03)
[2021-01-01 08:23] VITALS: BP 145/89
[2021-01-01] MEDS: ESCITALOPRAM OXALATE 20 MG TABLET PO SCH (08:35)
[2021-01-01] MEDS: GABAPENTIN 300 MG CAPSULE PO SCH ×3 (08:35→16:26)
[2021-01-01 16:55] VITALS: BP 109/64
[2021-01-01] MEDS: OLANZapine 10 MG TABLET PO SCH (20:15)
[2021-01-01] MEDS: ZOLPIDEM TARTRATE 10 MG TABLET PO PRN (23:04)
[2021-01-02] MEDS: ACETAMINOPHEN 325 MG TABLET PO PRN ×3 (05:50→15:08)
[2021-01-02] MEDS: GABAPENTIN 300 MG CAPSULE PO SCH ×3 (08:38→17:28)
[2021-01-02] MEDS: ESCITALOPRAM OXALATE 20 MG TABLET PO SCH (08:38)
[2021-01-02 09:49] VITALS: BP 140/92
[2021-01-02 16:39] VITALS: BP 131/71
[2021-01-02] MEDS: OLANZapine 10 MG TABLET PO SCH (20:55)
[2021-01-03 02:32] VITALS: BP 130/85
[2021-01-03 08:20] VITALS: BP 105/87
[2021-01-03] MEDS: ESCITALOPRAM OXALATE 20 MG TABLET PO SCH (08:21)
[2021-01-03] MEDS: GABAPENTIN 300 MG CAPSULE PO SCH ×3 (08:21→17:04)
[2021-01-03] MEDS: ACETAMINOPHEN 325 MG TABLET PO PRN ×3 (08:21→17:24)
[2021-01-03 08:42] VITALS: BP 105/87
[2021-01-03 16:24] VITALS: BP 140/65
[2021-01-03 17:24] VITALS: BP 139/66
[2021-01-03] MEDS: ZOLPIDEM TARTRATE 10 MG TABLET PO PRN (21:04)
[2021-01-03] MEDS: OLANZapine 10 MG TABLET PO SCH (21:04)
[2021-01-04] MEDS: ACETAMINOPHEN 325 MG TABLET PO PRN ×2 (06:27→10:46)
[2021-01-04 06:29] VITALS: BP 135/70
[2021-01-04 08:30] VITALS: BP 118/72
[2021-01-04] MEDS: GABAPENTIN 300 MG CAPSULE PO SCH ×3 (09:35→16:02)
[2021-01-04] MEDS: ESCITALOPRAM OXALATE 20 MG TABLET PO SCH (09:35)
[2021-01-04 10:45] VITALS: BP 120/77
[2021-01-04 11:45] VITALS: BP 151/104
[2021-01-04 16:52] VITALS: BP 130/70
== END 2021-01-04 17:20 | disposition home or self-care (01) | DRG 885 ==
LOC: EMS 21:00 → 3EX 23:00
PROVIDERS: ADMIT Psychiatry & Neurology Psychiatry; ATTEND Psychiatry & Neurology Psychiatry
DX: F25.9 Schizoaffective disorder, unspecified (principal); R45.851 Suicidal ideations; F12.90 Cannabis use, unspecified, uncomplicated; E87.6 Hypokalemia; E78.5 Hyperlipidemia, unspecified; G47.00 Insomnia, unspecified; I10 Essential (primary) hypertension; J44.9 Chronic obstructive pulmonary disease, unspecified; K21.9 Gastro-esophageal reflux disease without esophagitis; K59.00 Constipation, unspecified; E66.9 Obesity, unspecified; G89.29 Other chronic pain; Z20.822 Contact with and (suspected) exposure to COVID-19; Z88.8 Allergy status to other drugs, medicaments and biological substances
CPT/HCPCS: 80053; 80061; 84132; 85025; 87081; 99285; G0378; G0480

== ENCOUNTER 2021-01-15 15:08 | Emergency (ER) | payer MEDICARE, OTHER ==
[~2021-01-15] VITALS: Ht 167.6 cm; Wt 113.6 kg
[2021-01-15] MEDS ORDERED: MAG HYDROX/AL HYDROX/SIMETH 30 ML SUSP UDCUP PO ONE (15:30)
[2021-01-15] MEDS ORDERED: FAMOTIDINE 10 MG/ML 2 ML VIAL IVP ONE (15:30)
[2021-01-15] MEDS ORDERED: ALBUTEROL SULFATE HFA 90 MCG/PUFF 8 GM INHALER IH ONE (16:15)
[2021-01-15 16:32] LABS: BASOPHILS % (AUTO) 0.2 % (0.0-2.0); EOSINOPHILS % (AUTO) 1.1 % (1.0-6.0); HEMOGLOBIN 13.5 g/dL (13.5-17.5); LYMPHOCYTES # (AUTO) 1.2 K/uL (1.0-4.8); LYMPHOCYTES % (AUTO) 13.6 % (22.0-44.0); MEAN CORPUSCULAR HEMOGLOBIN 29.1 pg (26.0-34.0); MEAN CORPUSCULAR HGB CONC 32.9 G/dL (31.0-37.0); MEAN CORPUSCULAR VOLUME 89 fL (80-100); MONOCYTES # (AUTO) 0.4 K/uL (0.1-1.0); NEUTROPHILS # (AUTO) 6.9 K/uL (1.8-7.7); NEUTROPHILS % (AUTO) 80.1 % (40.0-70.0); PLATELET COUNT (AUTO) 193 K/uL (150-450); RED BLOOD CELL COUNT(AUTO) 4.63 MIL/uL (4.50-5.90); RED CELL DISTRIBUTION WIDTH 14.7 % (11.5-14.5)
[2021-01-15] MEDS ORDERED: AZITHROMYCIN 500 MG TABLET PO ONE (16:45)
[2021-01-15] MEDS ORDERED: PredniSONE 20 MG TABLET PO ONE (16:45)
[2021-01-15 17:03] LABS: B-TYPE NATRIURETIC PEPTIDE < 5 pg/mL (0-100)
[2021-01-15 17:38] LABS: ANION GAP 12 mmol/L (8-16); CALCIUM, TOTAL 8.9 mg/dL (8.8-10.5); CARBON DIOXIDE 26 mmol/L (22-29); CHLORIDE 104 mmol/L (98-107); CREATININE 1.09 mg/dL (0.60-1.30); GLOMERULAR FILTR. RATE CALC > 60 mL/min (>60); GLUCOSE,RANDOM 98 mg/dL (70-110); POTASSIUM 3.5 mmol/L (3.5-5.1); SODIUM SERUM 142 mmol/L (136-145); UREA NITROGEN, BLOOD 13 mg/dL (7-18)
[2021-01-15 18:00] VITALS: BP 132/80
[2021-01-15 18:02] LABS: ALANINE AMINOTRANSFERASE 29 U/L (12-78); ALBUMIN 3.7 g/dL (3.4-5.0); ALKALINE PHOSPHATASE 87 U/L (46-116); ASPARTATE AMINOTRANSFERASE 17 U/L (15-37); BILIRUBIN,TOTAL 0.4 mg/dL (0.1-1.0); CREATINE KINASE, TOTAL ONLY 100 U/L (39-308); TOTAL PROTEIN, SERUM 7.3 g/dL (6.4-8.2)
[2021-01-15 18:26] LABS: COVID AG,FIA SOURCE NASOPHARYNGEAL
== END 2021-01-15 18:57 | disposition home or self-care (01) ==
LOC: EMS 15:14
DX: J18.9 Pneumonia, unspecified organism (principal); Z20.822 Contact with and (suspected) exposure to COVID-19; F31.9 Bipolar disorder, unspecified; J44.9 Chronic obstructive pulmonary disease, unspecified; F20.9 Schizophrenia, unspecified
CPT/HCPCS: 36415; 71045; 80053; 82550; 83880; 84484; 85025; 87426; 93005; 94640; 96374; 99285; A9575; J3490; J7512; U0003; J3535; Q9967

== ENCOUNTER 2021-01-22 14:53 | Emergency (ER) | payer MEDICARE, OTHER ==
[~2021-01-22] VITALS: Ht 172.7 cm; Wt 118.2 kg
[2021-01-22 15:48] LABS: BASOPHILS % (AUTO) 0.2 % (0.0-2.0); EOSINOPHILS % (AUTO) 0.7 % (1.0-6.0); HEMATOCRIT 39.2 % (41-53); HEMOGLOBIN 13.1 g/dL (13.5-17.5); LYMPHOCYTES # (AUTO) 1.5 K/uL (1.0-4.8); LYMPHOCYTES % (AUTO) 14.7 % (22.0-44.0); MEAN CORPUSCULAR HEMOGLOBIN 29.5 pg (26.0-34.0); MEAN CORPUSCULAR HGB CONC 33.4 G/dL (31.0-37.0); MEAN CORPUSCULAR VOLUME 88 fL (80-100); MONOCYTES # (AUTO) 0.6 K/uL (0.1-1.0); MONOCYTES % (AUTO) 5.8 % (2.0-9.0); NEUTROPHILS % (AUTO) 78.6 % (40.0-70.0); PLATELET COUNT (AUTO) 191 K/uL (150-450); RED BLOOD CELL COUNT(AUTO) 4.44 MIL/uL (4.50-5.90)
[2021-01-22 16:08] LABS: ALANINE AMINOTRANSFERASE 25 U/L (12-78); ALBUMIN 3.6 g/dL (3.4-5.0); ALKALINE PHOSPHATASE 88 U/L (46-116); ANION GAP 14 mmol/L (8-16); ASPARTATE AMINOTRANSFERASE 18 U/L (15-37); BILIRUBIN,TOTAL 0.6 mg/dL (0.1-1.0); CALCIUM, TOTAL 7.9 mg/dL (8.8-10.5); CARBON DIOXIDE 23 mmol/L (22-29); CHLORIDE 93 mmol/L (98-107); CREATININE 0.98 mg/dL (0.60-1.30); GLOMERULAR FILTR. RATE CALC > 60 mL/min (>60); GLUCOSE,RANDOM 104 mg/dL (70-110); POTASSIUM 3.2 mmol/L (3.5-5.1); SODIUM SERUM 130 mmol/L (136-145); TOTAL PROTEIN, SERUM 7.1 g/dL (6.4-8.2)
[2021-01-22 16:27] LABS: UREA NITROGEN, BLOOD 9 mg/dL (7-18)
[2021-01-22] MEDS ORDERED: IOHEXOL 350 MG/ML 100 ML VIAL ONE (16:30)
[2021-01-22] MEDS ORDERED: SODIUM CHLORIDE 0.9% 100 ML ONE (16:30)
[2021-01-22 19:53] VITALS: BP 124/86
== END 2021-01-22 19:57 | disposition home or self-care (01) ==
LOC: EMS 15:04
DX: G89.29 Other chronic pain (principal); R07.9 Chest pain, unspecified; M25.561 Pain in right knee; M25.562 Pain in left knee; Z91.013 Allergy to seafood; Z79.899 Other long term (current) drug therapy
CPT/HCPCS: 36415; 71045; 71275; 80053; 84484; 85025; 85379; 93005; 99285; J7050; Q9967

== ENCOUNTER 2021-01-31 19:42 | Emergency (ER) | payer MEDICARE, OTHER ==
[~2021-01-31] VITALS: Ht 172.7 cm; Wt 113.6 kg
[2021-01-31 20:00] VITALS: BP 142/88
[2021-01-31] MEDS ORDERED: IBUP-2759 PO (20:09)
[2021-01-31] MEDS ORDERED: LORazepam 2 MG TABLET PO ONE (21:00)
[2021-01-31] MEDS ORDERED: HALOPERIDOL 5 MG TABLET PO ONE (21:00)
== END 2021-02-01 00:28 | disposition home or self-care (01) ==
LOC: EMS 19:45
DX: F25.9 Schizoaffective disorder, unspecified (principal); F31.9 Bipolar disorder, unspecified; J44.9 Chronic obstructive pulmonary disease, unspecified; Z91.013 Allergy to seafood; Z79.899 Other long term (current) drug therapy
CPT/HCPCS: 99284; Z7502; Z7610

== ENCOUNTER 2022-05-11 13:19 | Emergency (ER) | payer MEDICARE, OTHER ==
[~2022-05-11] VITALS: Ht 172.7 cm; Wt 113.6 kg
[~2022-05-11 13:19] MED LIST changes: +IBUP-45 PO
[2022-05-11 14:30] LABS: AMPHET/METH SCREEN,URINE NEGATIVE (NEGATIVE); BARBITURATE SCREEN, URINE NEGATIVE (NEGATIVE); BENZODIAZEPINES SCREEN,URINE NEGATIVE (NEGATIVE); CANNABINOID SCREEN,URINE POSITIVE (NEGATIVE); COCAINE SCREEN,URINE NEGATIVE (NEGATIVE); METHADONE SCREEN, URINE NEGATIVE (NEGATIVE); OPIATE SCREEN,URINE NEGATIVE (NEGATIVE); PHENCYCLIDINE SCREEN,URINE NEGATIVE (NEGATIVE)
[2022-05-11 14:47] VITALS: BP 150/87
[2022-05-11] MEDS ORDERED: GABAPENTIN 300 MG CAPSULE PO ONE (15:15)
[2022-05-11] MEDS ORDERED: LORazepam 2 MG TABLET PO ONE (15:15)
[2022-05-11] MEDS ORDERED: OLANZapine 5 MG TABLET PO ONE (15:15)
[2022-05-11 15:36] LABS: BASOPHILS % (AUTO) 0.5 % (0.0-2.0); EOSINOPHILS % (AUTO) 1.4 % (1.0-6.0); HEMATOCRIT 42.4 % (41-53); HEMOGLOBIN 14.3 g/dL (13.5-17.5); LYMPHOCYTES # (AUTO) 1.4 K/uL (1.0-4.8); LYMPHOCYTES % (AUTO) 18.1 % (22.0-44.0); MEAN CORPUSCULAR HEMOGLOBIN 29.7 pg (26.0-34.0); MEAN CORPUSCULAR HGB CONC 33.6 G/dL (31.0-37.0); MEAN CORPUSCULAR VOLUME 88 fL (80-100); MONOCYTES # (AUTO) 0.4 K/uL (0.1-1.0); MONOCYTES % (AUTO) 4.6 % (2.0-9.0); NEUTROPHILS % (AUTO) 75.4 % (40.0-70.0); PLATELET COUNT (AUTO) 197 K/uL (150-450); RED CELL DISTRIBUTION WIDTH 12.5 % (11.5-14.5)
[2022-05-11 15:45] LABS: ANION GAP 13 mmol/L (8-16); CALCIUM, TOTAL 9.7 mg/dL (8.8-10.5); CARBON DIOXIDE 26 mmol/L (22-29); CHLORIDE 95 mmol/L (98-107); CREATININE 1.21 mg/dL (0.60-1.30); GLOMERULAR FILTR. RATE CALC > 60 mL/min (>60); GLUCOSE,RANDOM 105 mg/dL (70-110); POTASSIUM 3.6 mmol/L (3.5-5.1); SODIUM SERUM 134 mmol/L (136-145); UREA NITROGEN, BLOOD 6 mg/dL (7-18)
[2022-05-11 15:51] LABS: ALANINE AMINOTRANSFERASE 34 U/L (12-78); ALBUMIN 3.8 g/dL (3.4-5.0); ALKALINE PHOSPHATASE 101 U/L (46-116); ASPARTATE AMINOTRANSFERASE 18 U/L (15-37); BILIRUBIN,TOTAL 0.4 mg/dL (0.1-1.0); TOTAL PROTEIN, SERUM 7.4 g/dL (6.4-8.2)
[2022-05-11] MEDS ORDERED: OLAN10TA74 PO (16:17)
[2022-05-11] MEDS ORDERED: GABA-1181 PO (16:17)
== END 2022-05-11 18:00 | disposition home or self-care (01) ==
LOC: EMS 13:24
DX: F20.9 Schizophrenia, unspecified (principal); F31.9 Bipolar disorder, unspecified; J44.9 Chronic obstructive pulmonary disease, unspecified; G89.29 Other chronic pain; M25.562 Pain in left knee; M25.561 Pain in right knee
CPT/HCPCS: 99284; 80053; 85025; 36415; 80307 ×2; G0480

== ENCOUNTER 2022-05-25 15:08 | Inpatient (IN) | payer MEDICARE, MEDICAID ==
[~2022-05-25] VITALS: Ht 172.7 cm; Wt 113.4 kg
[2022-05-25 20:17] VITALS: BP 112/86
[2022-05-25] MEDS ORDERED: INFLUENZA VIRUS VACCINE QVS 2022-23 (6MO+)/PF 60 MCG/0.5 ML SYRINGE IM. ONE (20:30)
[2022-05-25] MEDS: ZOLPIDEM TARTRATE 10 MG TABLET PO PRN (21:56)
[2022-05-26 00:17] VITALS: BP 112/86
[2022-05-26] MEDS: LORazepam 2 MG TABLET PO PRN ×3 (03:32→14:33)
[2022-05-26] MEDS: HALOPERIDOL 5 MG TABLET PO PRN ×3 (03:32→14:33)
[2022-05-26 07:28] LABS: BASOPHILS % (AUTO) 0.6 % (0.0-2.0); EOSINOPHILS % (AUTO) 4.9 % (1.0-6.0); HEMATOCRIT 40.5 % (41-53); LYMPHOCYTES # (AUTO) 1.7 K/uL (1.0-4.8); LYMPHOCYTES % (AUTO) 27.2 % (22.0-44.0); MEAN CORPUSCULAR HEMOGLOBIN 30.4 pg (26.0-34.0); MEAN CORPUSCULAR HGB CONC 34.6 G/dL (31.0-37.0); MEAN CORPUSCULAR VOLUME 88 fL (80-100); MONOCYTES # (AUTO) 0.4 K/uL (0.1-1.0); NEUTROPHILS # (AUTO) 3.7 K/uL (1.8-7.7); NEUTROPHILS % (AUTO) 60.3 % (40.0-70.0); PLATELET COUNT (AUTO) 177 K/uL (150-450); RED BLOOD CELL COUNT(AUTO) 4.62 MIL/uL (4.50-5.90); RED CELL DISTRIBUTION WIDTH 12.8 % (11.5-14.5)
[2022-05-26 07:53] LABS: HEMOGLOBIN A1C 5.8 % (3.8-5.6)
[2022-05-26 08:11] LABS: ALANINE AMINOTRANSFERASE 36 U/L (12-78); ALBUMIN 3.5 g/dL (3.4-5.0); ALKALINE PHOSPHATASE 110 U/L (46-116); ANION GAP 6 mmol/L (8-16); ASPARTATE AMINOTRANSFERASE 19 U/L (15-37); BILIRUBIN,TOTAL 0.3 mg/dL (0.1-1.0); CALCIUM, TOTAL 8.8 mg/dL (8.8-10.5); CARBON DIOXIDE 30 mmol/L (22-29); CHLORIDE 101 mmol/L (98-107); CHOL/HDL RATIO 1.7 (4.2-7.3); CHOLESTEROL 76 mg/dL (131-200); CREATININE 1.21 mg/dL (0.60-1.30); FREE T4 (FREE THYROXINE) 1.11 ng/dL (0.76-1.46); GLUCOSE,RANDOM 96 mg/dL (70-110); HDL CHOLESTEROL 45 mg/dL (40-60); LDL CHOL (CALC.) 7 mg/dL (0-130); POTASSIUM 3.8 mmol/L (3.5-5.1); SODIUM SERUM 137 mmol/L (136-145); THYROID STIMULATING HORMONE 1.81 uIU/mL (0.36-3.74); TOTAL PROTEIN, SERUM 7.3 g/dL (6.4-8.2); TRIGLYCERIDES 122 mg/dL (15-150); UREA NITROGEN, BLOOD 11 mg/dL (7-18)
[2022-05-26 08:13] LABS: GLOMERULAR FILTR. RATE CALC > 60 mL/min (>60)
[2022-05-26 08:30] VITALS: BP 123/83
[2022-05-26] MEDS ORDERED: MAG HYDROX/AL HYDROX/SIMETH ES 30 ML SUSPENSION UDCUP PO PRN (09:00)
[2022-05-26] MEDS ORDERED: LOPERAMIDE HCL 2 MG CAPSULE PO PRN (09:00)
[2022-05-26] MEDS ORDERED: OMEPRAZOLE 20 MG CAPSULE PO PRN (09:00)
[2022-05-26] MEDS ORDERED: BACITRACIN 28 GM OINTMENT TP PRN (09:00)
[2022-05-26] MEDS ORDERED: MAGNESIUM HYDROXIDE SUSPENSION 30 ML UDCUP PO PRN (09:00)
[2022-05-26] MEDS ORDERED: CloNIDine HCL 0.1 MG TABLET PO PRN (09:00)
[2022-05-26] MEDS ORDERED: PETROLATUM,WHITE 28 GM JELLY TP PRN (09:00)
[2022-05-26] MEDS ORDERED: ONDANSETRON HCL 4 MG TABLET PO PRN (09:00)
[2022-05-26] MEDS ORDERED: DOCUSATE SODIUM 100 MG CAPSULE PO PRN (09:00)
[2022-05-26] MEDS ORDERED: IBUPROFEN 600 MG TABLET PO PRN (09:00)
[2022-05-26] MEDS ORDERED: ALBUTEROL SULFATE HFA 90 MCG/PUFF 8 GM INHALER IH PRN (09:00)
[2022-05-26] MEDS ORDERED: BENZOCAINE/MENTHOL LOZENGE PO PRN (09:00)
[2022-05-26] MEDS: GABAPENTIN 300 MG CAPSULE PO SCH ×3 (09:35→17:13)
[2022-05-26 14:31] VITALS: BP 131/93
[2022-05-26 20:00] VITALS: BP 124/80
[2022-05-27 05:09] VITALS: BP 118/80
[2022-05-27] MEDS: ACETAMINOPHEN 325 MG TABLET PO PRN ×2 (05:09→13:50)
[2022-05-27] MEDS: HALOPERIDOL 5 MG TABLET PO PRN ×2 (05:27→13:09)
[2022-05-27] MEDS: LORazepam 2 MG TABLET PO PRN ×2 (05:38→13:17)
[2022-05-27] MEDS: GABAPENTIN 300 MG CAPSULE PO SCH ×3 (08:03→17:03)
[2022-05-27 08:24] VITALS: BP 140/83
[2022-05-27 20:14] VITALS: BP 138/79
[2022-05-27] MEDS: ZOLPIDEM TARTRATE 10 MG TABLET PO PRN (21:17)
[2022-05-28] MEDS: HALOPERIDOL 5 MG TABLET PO PRN ×2 (02:46→16:06)
[2022-05-28] MEDS: LORazepam 2 MG TABLET PO PRN ×3 (02:46→16:08)
[2022-05-28] MEDS: ACETAMINOPHEN 325 MG TABLET PO PRN ×2 (07:05→13:44)
[2022-05-28] MEDS: GABAPENTIN 300 MG CAPSULE PO SCH ×3 (08:51→16:06)
[2022-05-28 09:05] LABS: APPEARANCE,URINE CLEAR (CLEAR); BILIRUBIN,URINE NEGATIVE (NEGATIVE); GLUCOSE, URINE (UA) NEGATIVE (NEGATIVE); KETONES,URINE NEGATIVE (NEGATIVE); LEUKOCYTE ESTERASE ,URINE NEGATIVE (NEGATIVE); NITRATE,URINE NEGATIVE (NEGATIVE); OCCULT BLOOD,URINE NEGATIVE (NEGATIVE); PH,URINE 6.5 (5.0-8.0); PROTEIN,URINE NEGATIVE (NEGATIVE); SPECIFIC GRAVITIY, URINE 1.011 (1.003-1.030); UROBILINOGEN,URINE <=1.0 mg/dL (<=1.0)
[2022-05-28 09:11] LABS: AMPHET/METH SCREEN,URINE NEGATIVE (NEGATIVE); BARBITURATE SCREEN, URINE NEGATIVE (NEGATIVE); BENZODIAZEPINES SCREEN,URINE NEGATIVE (NEGATIVE); CANNABINOID SCREEN,URINE POSITIVE (NEGATIVE); COCAINE SCREEN,URINE NEGATIVE (NEGATIVE); METHADONE SCREEN, URINE NEGATIVE (NEGATIVE); OPIATE SCREEN,URINE NEGATIVE (NEGATIVE)
[2022-05-28 09:15] LABS: PHENCYCLIDINE SCREEN,URINE NEGATIVE (NEGATIVE)
[2022-05-28 10:31] VITALS: BP 107/66
[2022-05-28 22:32] VITALS: BP 140/96
[2022-05-29 02:41] VITALS: BP 110/79
[2022-05-29] MEDS: ACETAMINOPHEN 325 MG TABLET PO PRN ×2 (02:41→15:32)
[2022-05-29] MEDS: LORazepam 2 MG TABLET PO PRN ×3 (03:07→17:53)
[2022-05-29 08:31] VITALS: BP 119/74
[2022-05-29] MEDS: GABAPENTIN 300 MG CAPSULE PO SCH ×3 (08:57→16:50)
[2022-05-29] MEDS: HALOPERIDOL 5 MG TABLET PO PRN ×2 (10:35→17:53)
[2022-05-30 00:46] VITALS: BP 139/90
[2022-05-30 08:20] VITALS: BP 130/84
[2022-05-30] MEDS ORDERED: BuPROPion HCL 75 MG TABLET PO SCH (09:00)
[2022-05-30] MEDS: GABAPENTIN 300 MG CAPSULE PO SCH ×3 (09:17→16:19)
[2022-05-30] MEDS: ACETAMINOPHEN 325 MG TABLET PO PRN (14:18)
[2022-05-30] MEDS ORDERED: BUPR-344 PO (14:25)
[2022-05-30 15:31] VITALS: BP 148/94
[2022-05-30] MEDS ORDERED: OLAN10TA74 PO (15:47)
== END 2022-05-30 16:30 | disposition home or self-care (01) | DRG 885 ==
LOC: B2X 19:04
PROVIDERS: ADMIT Psychiatry & Neurology Psychiatry; ATTEND Psychiatry & Neurology Psychiatry
DX: F25.9 Schizoaffective disorder, unspecified (principal); I10 Essential (primary) hypertension; E78.5 Hyperlipidemia, unspecified; K21.9 Gastro-esophageal reflux disease without esophagitis; F41.9 Anxiety disorder, unspecified; J44.9 Chronic obstructive pulmonary disease, unspecified; K59.00 Constipation, unspecified; F12.90 Cannabis use, unspecified, uncomplicated
CPT/HCPCS: 80053; 80061; 80307; 81003; 83036; 84439; 84443; 85025

== ENCOUNTER 2023-10-31 20:42 | Emergency (ER) | payer MEDICARE, MEDICAID ==
[~2023-10-31] VITALS: Ht 172.7 cm; Wt 113.0 kg
[~2023-10-31 20:42] MED LIST changes: +BUPR-344 PO
[2023-10-31 21:49] VITALS: TEMP 97.9
[2023-10-31] MEDS: KETOROLAC TROMETHAMINE 60 MG/2 ML VIAL IM ONE (22:33)
[2023-10-31] MEDS: METHOCARBAMOL 500 MG TABLET PO ONE (22:33)
[2023-10-31] MEDS: GABAPENTIN 300 MG CAPSULE PO ONE (22:34)
[2023-10-31 23:07] LABS: BASOPHILS % (AUTO) 0.4 % (0.0-2.0); HEMATOCRIT 39.3 % (41-53); HEMOGLOBIN 13.1 g/dL (13.5-17.5); LYMPHOCYTES # (AUTO) 1.7 K/uL (1.0-4.8); LYMPHOCYTES % (AUTO) 23.3 % (22.0-44.0); MEAN CORPUSCULAR HEMOGLOBIN 30.2 pg (26.0-34.0); MEAN CORPUSCULAR HGB CONC 33.3 G/dL (31.0-37.0); MEAN CORPUSCULAR VOLUME 91 fL (80-100); MONOCYTES # (AUTO) 0.5 K/uL (0.1-1.0); MONOCYTES % (AUTO) 7.3 % (2.0-9.0); NEUTROPHILS # (AUTO) 4.8 K/uL (1.8-7.7); PLATELET COUNT (AUTO) 204 K/uL (150-450); RED BLOOD CELL COUNT(AUTO) 4.34 MIL/uL (4.50-5.90); RED CELL DISTRIBUTION WIDTH 13.6 % (11.5-14.5); WHITE BLOOD COUNT (AUTO) 7.4 K/uL (4.5-11.0)
[2023-10-31 23:11] LABS: ANION GAP 6 mmol/L (8-16); CALCIUM, TOTAL 8.8 mg/dL (8.8-10.5); CARBON DIOXIDE 31 mmol/L (22-29); CHLORIDE 102 mmol/L (98-107); CREATININE 1.18 mg/dL (0.60-1.30); GLOMERULAR FILTR. RATE CALC > 60 mL/min (>60); GLUCOSE,RANDOM 109 mg/dL (70-110); POTASSIUM 3.8 mmol/L (3.5-5.1); SODIUM SERUM 139 mmol/L (136-145); UREA NITROGEN, BLOOD 15 mg/dL (7-18)
[2023-10-31] MEDS ORDERED: LORA-1000 PO (23:31)
[2023-10-31] MEDS: LORazepam 2 MG TABLET PO STA (23:51)
[2023-11-01 03:14] VITALS: BP 127/85; PULSE 88; RESP 20
== END 2023-11-01 03:18 | disposition home or self-care (01) ==
LOC: EDBD → EMS 20:43
DX: G89.29 Other chronic pain (principal); M54.50 Low back pain, unspecified; F20.9 Schizophrenia, unspecified; F41.9 Anxiety disorder, unspecified
CPT/HCPCS: 99284; 80048; 85025; 36415; 96372; J1885

== ENCOUNTER 2023-11-01 04:35 | Emergency (ER) | payer MEDICARE, MEDICAID ==
[~2023-11-01] VITALS: Ht 172.7 cm; Wt 118.0 kg
[~2023-11-01 04:35] MED LIST changes: +LORA-1000 PO
[2023-11-01 06:26] VITALS: TEMP 97.7
[2023-11-01] MEDS: GABAPENTIN 300 MG CAPSULE PO ONE (10:08)
[2023-11-01 12:55] VITALS: BP 127/81; PULSE 84; RESP 20; O2SAT 94
== END 2023-11-01 13:00 | disposition home or self-care (01) ==
LOC: EDBD 04:36 → EMS 04:36
DX: F41.9 Anxiety disorder, unspecified (principal); M25.569 Pain in unspecified knee; Z59.9 Problem related to housing and economic circumstances, unspecified
CPT/HCPCS: 99283